=== PATIENT | female | born 1985 | race Hispanic/Latino ===

== ENCOUNTER 2024-04-10 00:08 | Day surgery (SDC) | payer MEDICAID, OTHER ==
[2024-04-10 00:49] VITALS: BMI 34.9
[2024-04-10] MEDS ORDERED: hydrALAZINE 20 MG/ML VIAL SLOW IVP PRN (01:17)
[2024-04-10] MEDS: guaiFENesin ER 600 MG TAB PO SCH (01:40)
[2024-04-10] MEDS: Benzocaine/Menthol 1 LOZ LOZ PO SCH (01:40)
[2024-04-10] MEDS: Acetaminophen 500 MG TAB PO SCH (02:48)
[2024-04-10] MEDS ORDERED: Lactated Ringer's 1,000 ML IV SCH ×2 (03:15→05:00)
[2024-04-10] MEDS ORDERED: Acetaminophen 500 MG TAB PO PRN (04:55)
[2024-04-10] MEDS ORDERED: Benzocaine/Menthol 1 LOZ LOZ PO PRN (04:56)
[2024-04-10] MEDS ORDERED: guaiFENesin ER 600 MG TAB PO SCH (13:00)
== END 2024-04-10 07:30 | disposition home or self-care (01) ==
LOC: CSHLD/OP 00:08
PROVIDERS: ATTEND Obstetrics & Gynecology
DX: O99.891 Other specified diseases and conditions complicating pregnancy (principal); R10.9 Unspecified abdominal pain; R05.9 Cough, unspecified; O98.513 Other viral diseases complicating pregnancy, third trimester; U07.1 COVID-19; O36.8330 Maternal care for abnormalities of the fetal heart rate or rhythm, third trimester, not applicable or unspecified; O32.1XX0 Maternal care for breech presentation, not applicable or unspecified; Z3A.35 35 weeks gestation of pregnancy
CPT/HCPCS: 0241U; 36415; 76819; 80053; 81001; 85025; 86900; 86901; 87086; 93005; 96360; 96361; 99283

== ENCOUNTER 2024-05-04 15:22 | Inpatient (IN) | payer MEDICAID, SELFPAY ==
[2024-05-04 16:33] LABS: Bilirubin Neg (Negative); Blood, Urine 25 (Negative); Glucose, Urine (Dipstick) Normal (Negative); Ketone, Urine Negative (Negative); Leukocyte Negative (Negative); Nitrite Negative (Negative); Protein, Urine (Dipstick) 15 mg/dl (Neg-Trace); Urobilinogen Normal mg/dL (Less than 2); pH, Urine 6.5 (5.0-9.0)
[2024-05-04 16:54] LABS: White Blood Cell (WBC) Count 8.4 10x3/uL (3.5-10.5)
[2024-05-04 16:55] LABS: #Basophils 0.06 10x3/uL (0.0-0.2); #Eosinphils 0.21 10x3/uL (0.0-0.5); #Monocytes 0.63 10x3/uL (0.0-1.1); #Neutrophils 5.78 10x3/uL (1.5-8.4); %Basophils 0.7 % (0.0-2.0); %Eosinophils 2.5 % (0.0-6.0); %Lymphocytes 18.7 % (18.0-47.0); %Monocytes 7.5 % (0.0-10.0); %Neutrophils 69.3 % (40.0-75.0); Hematocrit 38.8 % (34.9-44.5); Hemoglobin 12.9 g/dL (12.0-15.5); Mean Corpuscular HGB CONC 33.2 g/dL (32.0-36.0); Mean Corpuscular Hemoglobin 31.2 pg (27.0-33.0); Mean Corpuscular Volume 93.7 fL (81.6-98.3); Mean Platelet Volume 10.9 fL (7.4-10.4); Platelet Count 303 10x3/uL (150-450); RBC Distribution Width 14.6 % (11.5-14.5); Red Blood Cell (RBC) Count 4.14 10x6/uL (3.90-5.03)
[2024-05-04] MEDS ORDERED: Labetalol HCl 100 MG/20 ML VIAL SLOW IVP PRN ×2 (16:56)
[2024-05-04 17:00] LABS: ALT (SGPT) 35 U/L (8-55); AST (SGOT) 54 U/L (5-34); Albumin 2.7 g/dL (3.5-5.0); Alkaline Phosphatase 113 U/L (40-110); Anion Gap 12 mmol/L (10-20); BUN (Urea Nitrogen) 16 mg/dL (7.0-18.7); Bilirubin, Total 0.4 mg/dL (0.2-1.2); Calc. Creatinine Clearance 0 mL/min (70-130); Calcium 9.1 mg/dL (7.8-10.44); Carbon Dioxide 23 mmol/L (22-29); Chloride 107 mmol/L (98-107); Estimated GFR 110; Globulin 3.9 g/dL (2.4-3.5); Glucose 85 mg/dL (70-105); Potassium 4.3 mmol/L (3.5-5.1); Protein, Total 6.6 g/dL (6.0-8.3); Sodium 138 mmol/L (136-145)
[2024-05-04 17:37] LABS: Creatinine, Urine 88.44 mg/dL (47-110)
[2024-05-04 17:42] LABS: Clarity Clear (Clear)
[2024-05-04 17:46] LABS: RBC/HPF 0-3 HPF (0-3)
[2024-05-04 17:47] VITALS: BMI 35.4
[2024-05-04 17:47] LABS: Bacteria/HPF Rare-Few HPF (None Seen); CAUTI Indications for Culture Pregnancy; WBC/HPF 0-3 HPF (0-3)
[2024-05-04] MEDS: Furosemide 40 MG (4 mL) VIAL SLOW IVP SCH (17:48)
[2024-05-04 17:49] LABS: Urine Culture Reflex Yes Yes
[2024-05-04] MEDS: Amlodipine 5 MG TAB PO SCH (17:54)
[2024-05-04] MEDS ORDERED: Lorazepam 2 MG/ML VIAL SLOW IVP PRN (18:26)
[2024-05-04] MEDS ORDERED: Calcium Gluc 4.6 MEQ/10 ML (100 MG/ML) SLOW IVP PRN (18:26)
[2024-05-04] MEDS ORDERED: Magnesium Sulfate 20 gm/500 ml 20 GM/500 ML BAG IVPB SCH (18:30)
[2024-05-04] MEDS: Magnesium Sulfate 20 gm/500 ml 20 GM/500 ML BAG ONE (18:38)
[2024-05-04] MEDS: hydrALAZINE 20 MG/ML VIAL SLOW IVP PRN (19:58)
[2024-05-04 20:53] LABS: Uric Acid 6.6 mg/dL (2.6-6.0)
[2024-05-04] MEDS: Ibuprofen 800 MG TAB PO PRN (21:59)
[2024-05-04] MEDS: Acetaminophen 500 MG TAB PO SCH (23:15)
[2024-05-05] MEDS: Labetalol HCl 100 MG/20 ML VIAL SLOW IVP PRN (00:01)
[2024-05-05] MEDS: Amlodipine 5 MG TAB PO SCH ×2 (00:19→09:24)
[2024-05-05] MEDS ORDERED: Amlodipine 5 MG TAB PO SCH (09:00)
[2024-05-05] MEDS: Cyclobenzaprine 10 MG TAB PO SCH (09:11)
[2024-05-05] MEDS: Ketorolac Tromethamine 30 MG (1 mL) VIAL IVP SCH (09:13)
[2024-05-05] MEDS: Furosemide 40 MG (4 mL) VIAL SLOW IVP SCH (09:15)
[2024-05-05] MEDS: Ibuprofen 800 MG TAB PO PRN (15:31)
[2024-05-06 08:17] VITALS: BP 133/77; TEMP 98.1
== END 2024-05-06 11:05 | disposition home or self-care (01) | DRG 776 ==
LOC: CSHERS 15:22 → CSHLD/OP 17:29 → CSHLD 18:29 → CSHPP 05-05 12:00
PROVIDERS: ADMIT Student in an Organized Health Care Education/Training Program; ATTEND Student in an Organized Health Care Education/Training Program
DX: O14.15 Severe pre-eclampsia, complicating the puerperium (principal); O90.89 Other complications of the puerperium, not elsewhere classified; R51.9 Headache, unspecified; Z98.891 History of uterine scar from previous surgery
CPT/HCPCS: 80053; 81001; 82570; 83615; 84156; 84550; 85025; 87086; 99283; J0360; J1885; J1940; J3475